=== PATIENT | male | born 1950 | race Caucasian/White ===

== ENCOUNTER 2023-10-10 10:24 | Outpatient (CLI) | payer MEDICARE, OTHER ==
--- NOTE | 2023-10-10 11:13 | Sleep Patient Instructions ---
Sleep Center Visit Summary - Patient Visit Information Reason for Visit: Initial consult for evaluation of sleep disordered breathing and other sleep issues. - Patient Instructions Instructions Attached: Sleep Study Additional Instructions: You will be completing a sleep study, either an in-lab polysomnography (PSG) or home sleep study (HST). You will follow-up in the sleep care office after the sleep study is completed to hear the results and talk about therapy, if needed. You will be called by our office staff to schedule this appointment, but you may contact us with any questions. - Clinic Information Contact: [facility] [address] [place] [address] [email or web address] T: [phone]
--- NOTE | 2023-10-10 11:21 | SLEEP CARE CONSULTATION ---
Information from patient questionnaire entered by Sara Bedoya. I have reviewed and concur with the information entered by Sara Bedoya. This document represents the service I personally performed and the decisions made by me, Merle Meyer ARNP. History of Present Illness Service Date and Time: 10/10/2023 1024 Reason for Visit: New patient Accompanied by: Spouse (Elvia) Chief Complaint: reports: Snoring, Excessive daytime sleepiness Date of Onset: 3 yrs Usual bedtime: 8-9 PM Time it takes to fall asleep: few minutes Snores at night: Yes (light) Observed to quit breathing while asleep: No Number of times waking at night: 2 Reasons for waking at night: reports: Bathroom. denies: Choking, Snoring, Gasping for air Toss, Turn, or Twitch while sleeping: No Recalls having dreams: Yes Usually gets out of bed at: 5 AM Feels refreshed in the morning: Yes Morning headache: No Sleepy or fatigued during the day: Yes Ever fallen asleep while driving: No Takes day naps: Yes (at least one a day; for about 30 minutes) Dreams during day naps: Yes Prior sleep studies: No Additional HPI information: I had the pleasure of seeing RONAN COMER today regarding the possibility of him having a sleep disorder. He is accompanied by his , Elvia who helps with history. His current complaints are excessive daytime sleepiness and light snoring. He has vascular dementia and his doctor has sent him have evaluation for sleep issues. He feels he is rested in the mornings and denies headaches. He denies gasping or choking in sleep and his has not noted him stopping breathing at night. - Parasomnia Symptoms Ever been unable to move upon waking from sleep: No Walks in sleep: No Talks in sleep: No Ever acted out dreams in sleep: No Ever felt weak in the knees when startled or emotional: No Bothered by creepy, crawly, restless sensations in legs: No Problems with memory or concentration: Yes (mostly memory) Subjective Initial [place] Sleepiness Scale score: 12 (10/10/23) Past Medical History Past Medical History: reports: Hypertension, Stroke (TIA 3 years ago), Coronary Heart Disease ([place]; 3 way bypass, stent placed), Other (STROKE 2020) Social History The patient's occupation is a RE. Patient is and lives in . Have you smoked in the past 12 months: No Years of smokin Quit date: 1969 Alcohol use: Yes Alcohol amount and frequency: 4-5 PER WEEK Caffeine use: Yes Caffeine amount and frequency: A FEW DAILY Family History Family history of sleep disordered breathing: No Allergies and Home Medications Known drug allergies: No Drug allergies reviewed: Yes Home medication list reviewed: Yes Allergy and home medication list: Allergies latex Allergy (Verified 10/10/23 11:02) Home Medications Acetaminophen [Aphen] See Rx Instructions .ROUTE .COMPLEX 10/09/23 [History] Ascorbic Acid [Vitamin C] See Rx Instructions .ROUTE .COMPLEX 10/10/23 [History] Aspirin [[place]az[place]] See Rx Instructions .ROUTE .COMPLEX 10/10/23 [History] Atorvastatin [Lipitor] See Rx Instructions .ROUTE .COMPLEX 10/10/23 [History] Cholecalciferol (Vitamin D3) [Vitamin D3] See Rx Instructions .ROUTE .COMPLEX 10/10/23 [History] Donepezil [Aricept] See Rx Instructions .ROUTE .COMPLEX 10/10/23 [History] Lisinopril [Zestril] See Rx Instructions .ROUTE .COMPLEX 10/10/23 [History] Magnesium See Rx Instructions .ROUTE .COMPLEX 10/10/23 [History] Mecobalamin [B12 Active] See Rx Instructions .ROUTE .COMPLEX 10/10/23 [History] Metoprolol Succinate [Toprol Xl] See Rx Instructions .ROUTE .COMPLEX 10/10/23 [History] Multivitamin See Rx Instructions .ROUTE .COMPLEX 10/10/23 [History] Review of Systems Cardiovascular: reports: high blood pressure Respiratory: denies: shortness of breath Gastrointestinal: denies: heartburn Neurological: denies: headaches Psychiatric: denies: anxiety, depression Ear/Nose/Throat: denies: tonsillectomy Physical Exam Vital signs obtained and entered by: SARA Matias MA Blood Pressure: 146/79 (right arm) Cuff size: regular Heart Rate: 64 O2 Saturation: 96 Height: 6 ft 1 in Weight: 232 lb Body Mass Index: 30.6 BMI Classification: Obese Neck circumference: 18 (inches) Mouth and throat: narrow oropharynx Soft palate: long Hard palate: normal Uvula: normal Uvula visualization: 100% Mallampati Class I Tongue: enlarged in size with teeth ornelas on lateral edges Tonsils: small Neck: normal w/o lymphadenopathy or thyromegaly Heart: regular rate and rhythm Lungs: clear bilaterally Impression and Plan 1. Suspected Obstructive Sleep Apnea-Hypopnea Syndrome, as suggested by a history of irregular snoring, cognitive impairment, and excessive daytime sleepiness. He has a history of CHD, [place] and TIA. Narrow oropharynx and obesity are common predisposing factors for obstructive sleep apnea-hypopnea syndrome. I recommend proceeding to polysomnography to confirm the diagnosis and to assess severity. If the patient has significant sleep disordered breathing, a manual CPAP titration study will also be performed to find the optimal treatment pressure. I informed the patient of what the sleep studies involve and after some discussion, obtained agreement to proceed. The pathophysiology of obstructive sleep apnea-hypopnea syndrome was discussed with the patient and health risks of cardiovascular and cerebrovascular disease if not treated. Risks of drowsy driving discussed in detail and patient advised to avoid long distance driving and to drum puller at the first sign of drowsiness. Patient agree d to plan. * Schedule polysomnography. * Avoid long distance driving or driving when feeling sleepy. * Avoid alcohol, sedative and muscle relaxant around bedtime. * Attempt to lose weight. * Review instructions provided by trained office staff on how to prepare for the sleep study. * Return for follow-up after sleep study completed. Counseling Topics: Weight loss health impact Plan: PSG Visit Type: In Office Time Spent with Patient (minutes): 35 Provider Statement: I spent 100% of the Face to Face Visit with the patient with greater than 50% spent counseling the patient and coordination of care.
[2023-10-10 11:24] VITALS: BP 146/79; O2SAT 96
== END 2023-10-10 10:25 | disposition home or self-care (01) ==
LOC: SC 10:24
PROVIDERS: ATTEND Nurse Practitioner Family
DX: G47.10 Hypersomnia, unspecified (principal); R06.83 Snoring; R41.89 Other symptoms and signs involving cognitive functions and awareness; I10 Essential (primary) hypertension; I25.10 Atherosclerotic heart disease of native coronary artery without angina pectoris; I25.2 Old myocardial infarction; E66.9 Obesity, unspecified; Z68.30 Body mass index [BMI] 30.0-30.9, adult
CPT/HCPCS: 99203; G0463; 99212

== ENCOUNTER 2023-10-30 19:41 | Outpatient (CLI) | payer MEDICARE, OTHER | END 2023-10-30 19:42 | disposition home or self-care (01) | LOC: SC 19:41 | PROVIDERS: ATTEND Nurse Practitioner Family | DX: G47.33 Obstructive sleep apnea (adult) (pediatric) (principal); G47.61 Periodic limb movement disorder; E66.9 Obesity, unspecified; Z68.30 Body mass index [BMI] 30.0-30.9, adult | CPT/HCPCS: 95810 ==

== ENCOUNTER 2023-11-05 15:36 | Outpatient (CLI) | payer MEDICARE, OTHER ==
--- NOTE | 2023-11-05 15:28 | SLEEP CARE CONSULTATION ---
Information from patient questionnaire entered by Sara Bedoya. I have reviewed and concur with the information entered by Sara Bedoya. This document represents the service I personally performed and the decisions made by , Merle Meyer ARNP. History of Present Illness Service Date and Time: 11/05/2023 1500 Accompanied by: Spouse (Elvia) Initial [place] Sleepiness Scale score: 12 (10/10/23) Current [place] Sleepiness Scale score: 14 (11/05/23) Additional HPI information: RONAN COMER returns via telephone visit for follow up and results of the recently performed polysomnography. The sleep study showed mild obstructive sleep apnea with an average AHI of 13.5 and prabhjot oxygen saturation of 79%. I explained the pathophysiology behind obstructive sleep apnea. We then spent quite a bit of time discussing different treatment options. For mild obstructive sleep apnea, surgery and oral appliance are alternatives to nasal CPAP therapy but in moderate or severe cases, nasal CPAP is the most effective and reliable treatment. Because apnea is primarily in supine position, then positional management therapy could be effective. Methods discussed such as positioning with pillows, using a T-shirt with tennis balls in the back or commercial products that have a pillow format on back to prevent supine sleep. I reviewed the impact of weight changes on sleep apnea and strongly recommended losing weight. After some discussion, the patient opted to go with the nasal CPAP therapy. Nasal autoCPAP set at 4-15 cmH20 will be ordered with rationale explained. A manual titration study will be ordered if unable to find optimal pressure with office adjustments. I explained how CPAP machine works and what to expect when using the machine. Using CPAP every night in order to get used to it was em phasized. Patient advised to put CPAP mask on before getting into bed so as not to fall asleep without CPAP. To assist acclimation to CPAP use, it could also be used for a short time during day while reading or watching TV. The patient was instructed to call the CPAP supplier to discuss any mechanical problem that may occur. If the mask given is uncomfortable or is difficult to keep on through the night even with adjustment, contact the CPAP supplier as many will replace with another mask style if notified before 30 days. If snoring or perceives is not getting enough air or too much air from the machine, notify this office. Patient counseled not drink alcohol less than 4 hours before bedtime as it can increase snoring and apnea. Patient was cautioned about risks of drowsy driving until sleepiness symptoms resolve. Patient denies drowsy driving. He does not drive much anymore. Sleep Study - Results Type of Sleep Study: Polysomnography (COMPLETED 10/30/23) Prior sleep studies: No Polysomnography/Home Sleep Study results: IMPRESSION: The quality of the study is good. The patient had slightly reduced sleep efficiency due to a prolonged awakening in the second half of the night. The sleep architecture was abnormal for sleep fragmentation and reduced amount of time spent in slow wave sleep (N3). Respiratory monitoring showed mild obstructive sleep apnea-hypopnea (AHI = 13.5) associated with frequent arousals, oxyhemoglobin desaturation and moderate hypoxia (prabhjot oxygen saturation of 79%). Baseline oxygen saturation was normal. The respiratory events occurred predominantly during supine sleep (supine AHI = 20.1; non-supine = 11.69). Snore was light to loud in intensity. There was moderate periodic leg movement of sleep, not contributing to the sleep fragmentation. Cardiac rhythm was normal sinus rhythm with occasional premature ventricular contractions. No abnormal behavior (parasomnia) observed during the night. Allergies and Home Medications Known drug allergies: Yes (as listed) Drug allergies reviewed: Yes Home medication list reviewed: Yes (no changes) Allergy and home medication list: Allergies latex Allergy (Verified 11/05/23 09:22) Review of Systems Review of systems same as previous: Yes (NO CHANGE) Physical Exam Vital signs obtained and entered by: SARA Matias MA Height: 6 ft 1 in (PER PT) Weight: 225 lb (PER PT) Body Mass Index: 29.7 BMI Classification: Overweight Impression and Plan 1. Obstructive Sleep Apnea-Hypopnea Syndrome, mild, with lowest oxygen saturation of 79%. Obviously this is the cause of the patients symptoms of unrefreshed sleep, and excessive daytime sleepiness. Positive pressure therapy could benefit hypertension, cardiac disease ([place], CHD) and cerebrovascular disease (stroke). As mentioned above, the patient will be started on nasal autoCPAP therapy with pressure set at 4-15 cmH2O. A manual titration study will be completed if unable to find optimal treatment pressure with office adjustments. Compliance guidelines also reviewed. A copy of compliance guidelines will be given for reference at check out. Because the apnea is more severe supine, I instructed to avoid sleeping supine using pillow positioning until able to start CPAP use. 2. Hypoxemia, moderate, with a prabhjot oxygen saturation of 79% and 5 minutes spent under 90%. The baseline oxygen saturation was normal with an average oxygen saturation of 92%. 3. Periodic limb movement, moderate, that did not fragment patients sleep. Periodic limb movement of sleep (PLMS) is characterized by episodes of repetitive limb movements that occur during sleep and usually involve the lower limbs. The etiology is unknown. Sleep hygiene methods can also improve sleep as well as lifestyle changes such as regular exercise. Patient was advised that no treatment is needed at this time. If symptoms increase, then further evaluation is indicated. 4. Overweight, unspecified. Currently patients BMI is 29.7. Obesity increases the risk of apnea, CPAP pressure requirements and overall health risks especially cardiovascular and diabetes. Thus patient is advised to lose weight. * Nasal auto CPAP therapy, pressure at 4-15 cm H2O. * Attempt to lose weight. * Avoid alcohol consumption near bedtime. * Avoid supine sleep until using CPAP. * The patient is again cautioned about driving until sleepiness completely resolves. * Return one month after CPAP obtained. I will assess response to therapy and compliance at that time. Counseling Topics: Weight loss health impact Prescriptions: Auto CPAP Visit Type: Telehealth Phone Video Type: DoximDialedIN Patient Location: Home Other Participants: Spouse/Significant Other Location of Provider: Office Patient agrees and consents to this telehealth visit type: Yes Patient agrees to have their insurance billed: Yes Time Spent with Patient (minutes): 20 Provider Statement: I spent 100% of the Telehealth Phone Call with the patient with greater than 50% spent counseling the patient and coordination of care.
== END 2023-11-05 15:37 | disposition home or self-care (01) ==
LOC: SC 15:36
PROVIDERS: ATTEND Nurse Practitioner Family
DX: G47.33 Obstructive sleep apnea (adult) (pediatric) (principal); R09.02 Hypoxemia; G47.61 Periodic limb movement disorder
CPT/HCPCS: 99442